=== PATIENT | female | born 1945 | race Caucasian/White ===

== ENCOUNTER → 2018-03-05 12:46 | Outpatient (CLI) | payer MEDICARE, SELFPAY ==
[2018-03-05 13:30] LABS: Add Manual Diff / Slide Review NO; Basophils Absolute Auto 0 /uL (0-100); Basophils Percent Auto 0.4 % (0-2); Eosinophils Absolute Auto 200 /uL (0-450); Eosinophils Percent Auto 2.7 % (2-4); Hematocrit 35.4 % (36-46); Hemoglobin 11.4 g/dL (12.0-16.0); Lymphocytes Absolute Auto 2600 /uL (1100-4500); Lymphocytes Percent Auto 34.6 % (25-40); Mean Corpuscular HGB Conc 32.1 % (30-36); Mean Corpuscular Hemoglobin 26.3 PG (26-34); Mean Corpuscular Volume 81.9 fL (80-100); Monocytes Absolute Auto 700 /uL (0-900); Monocytes Percent Auto 9.4 % (3-14); Neutrophils Absolute Auto 4000 /uL (1500-7000); Neutrophils Percent Auto 52.9 % (50-75); Platelet Count 251 X10^3/uL (150-400); Red Blood Cell Count 4.32 X10^6/uL (4.0-5.2); Red Cell Distribution Width 13.5 % (11.6-14.8); White Blood Cell Count 7.6 X10^3/uL (4.5-11.0)
== END ==
PROVIDERS: Family Provider Family Medicine; PCP Family Medicine; Visit Provider Specialist
DX: K62.5 Hemorrhage of anus and rectum (principal)
CPT/HCPCS: 36415; 85025

== ENCOUNTER → 2018-03-25 16:03 | Outpatient (CLI) | payer MEDICARE, SELFPAY ==
[2018-03-25 16:56] LABS: Hematocrit 38.8 % (36-46); Hemoglobin 12.4 g/dL (12.0-16.0)
[2018-03-25 17:09] LABS: Alanine Aminotransferase 27 IU/L (9-52); Albumin 4.8 g/dL (3.5-5.0); Albumin Globulin Ratio 1.4 (1.0-2.8); Alkaline Phosphatase 76 U/L (38-126); Aspartate Aminotransferase 27 IU/L (14-36); Bilirubin Total 0.6 mg/dL (0.2-1.3); Blood Urea Nitrogen 15 mg/dL (7-17); Calcium 9.9 mg/dL (8.4-10.2); Carbon Dioxide 25 mmol/L (22-32); Chloride 102 mmol/L (98-107); Cholesterol 234 mg/dL (140-199); Estimated Glomerular Filt Rate > 60.0 mL/min (>60); Globulin 3.5 g/dL (1.7-4.1); Glucose 98 mg/dL (80-110); HDL Cholesterol 38 mg/dL (40-60); Sodium 139 mmol/L (137-145); Total Protein 8.3 g/dL (6.3-8.2); Triglycerides 258 mg/dL (35-150)
[2018-03-25 17:10] LABS: HEMOLYSIS 33 (0-50); LDL Cholesterol Calculated 144 mg/dL (<100)
== END ==
PROVIDERS: Family Provider Family Medicine; PCP Family Medicine; Visit Provider Physician Assistant
DX: E78.2 Mixed hyperlipidemia (principal); D58.2 Other hemoglobinopathies
CPT/HCPCS: 36415; 80053; 80061; 85014; 85018

== ENCOUNTER → 2018-07-14 08:43 | Outpatient (CLI) | payer MEDICARE, SELFPAY ==
--- NOTE | 2018-07-14 | DI.MRI.S_ITS ---
PROCEDURE: MR ANGIO HEAD WO CON INDICATIONS: NEW ONSET MIRGRAINES/ MEMORY LOSS TECHNIQUE: Noncontrast axial 3-D [id number] MR angiogram, with 3-dimensional maximum intensity projection (MIP) reformats of the internal carotid arteries and posterior circulation then performed. COMPARISON: [facility], MR, BRAIN WITHOUT CONTRAST, 05/03/2009, 9:09. [facility], CT, HEAD WITHOUT CONTRAST, 04/13/2015, 12:20. [facility], MR, MR HEAD/BRAIN WO CON, 07/14/2018, 10:05. FINDINGS: Image quality: Excellent. Anterior circulation: Intracranial internal carotid arteries demonstrate normal size and intraluminal flow signal. The flow within the paired anterior cerebral arteries is normal and symmetric. The flow within the middle cerebral arteries is normal and symmetric. The anterior communicating artery is seen. No stenoses, occlusions, or aneurysms. Posterior circulation: Visualized portions of the vertebral arteries demonstrate normal caliber, and join to form a normal appearing basilar artery. The flow within the posterior cerebral arteries is normal and symmetric. The left posterior cerebral system is applied the P1 segment and the posterior communicating artery. No stenoses, occlusions, or aneurysms. IMPRESSION: No significant intracranial arterial abnormality is seen. Dictated by: Angel Grimes M.D. on 07/14/2018 at 10:12 Approved by: Angel Grimes M.D. on 07/14/2018 at 10:14
--- NOTE | 2018-07-14 | DI.MRI.S_ITS ---
PROCEDURE: MR HEAD/BRAIN WO CON INDICATIONS: NEW ONSET MIRGRAINES/ MEMORY LOSS TECHNIQUE: Non-contrast axial T1 spin echo, axial T2 fast spin echo, sagittal and axial FLAIR, coronal T2 fast spin echo, axial gradient echo, axial diffusion and ADC through the brain. COMPARISON: [facility], MR, BRAIN WITHOUT CONTRAST, 05/03/2009, 9:09. [facility], MR, MR ANGIO HEAD WO CON, 07/14/2018, 9:50. [facility], CT, HEAD WITHOUT CONTRAST, 04/13/2015, 12:20. FINDINGS: Image quality: Excellent. CSF spaces: Ventricles appear symmetric in size and shape. Basal cisterns are patent. No extra-axial fluid collections. Brain: No intracranial bleeds or mass effects. There is cerebral volume loss for age. There are periventricular and deep white matter chronic small vessel ischemic changes. Brainstem appears normal. Diffusion-weighted images show no acute ischemic insults. No chronic ischemic insults. Normal intravascular flow voids are present. Skull and face: Calvarial bone marrow is normal in signal. Orbits are normal. A right lens replacement can be seen. Sinuses: No significant active paranasal sinus disease is seen. Mild left mastoid air cell fluid can be seen, which is similar to 2010. IMPRESSION: No imaging explanation is found for this patient's presenting symptoms. Note is made of age-appropriate brain parenchymal volume loss and chronic small vessel ischemic changes. The degree of chronic small vessel ischemic change has progressed compared to 2009. Mild left mastoid air cell fluid. Dictated by: Angel Grimes M.D. on 07/14/2018 at 10:14 Approved by: Angel Grimes M.D. on 07/14/2018 at 10:17
--- NOTE | 2018-07-14 | DI.US.S_ITS ---
PROCEDURE: US CAROTID DOPPLER BI INDICATIONS: NEW ONSET MIRGRAINES/ MEMORY LOSS TECHNIQUE: Color and pulse Doppler interrogation was performed of both carotid systems, with image documentation and velocity measurements. COMPARISON: None. FINDINGS: Stenosis calculations are based on SRU (Society of Radiologists in Ultrasound) criteria. Right side: Brachial blood pressure: 144 per 76 mm Hg. Common carotid artery peak systolic velocity: 69 cm/sec. Internal carotid artery peak systolic velocity: 126 cm/sec. Internal carotid artery end diastolic velocity: 46 cm/sec. External carotid artery peak systolic velocity: 66 cm/sec. ICA/CCA peak systolic ratio: 1.8. Jesus scale imaging description: Minimal intimal thickening. Percent internal carotid artery stenosis: 50-69% stenosis. Vertebral artery: Flow direction is antegrade. Left side: Brachial blood pressure: 134/72 mm Hg. Common carotid artery peak systolic velocity: 88 cm/sec. Internal carotid artery peak systolic velocity: 92 cm/sec. Internal carotid artery end diastolic velocity: 33 cm/sec. External carotid artery peak systolic velocity: 63 cm/sec. ICA/CCA peak systolic ratio: 1.0. Jesus scale imaging description: Minimal scattered plaque. Percent internal carotid artery stenosis: Less than 50% stenosis. Vertebral artery: Flow direction is antegrade. IMPRESSION: 1. Stable 50-69% right internal carotid artery stenosis. 2. Stable less than 50% left internal carotid artery stenosis. Dictated by: Marlon LUNDBERG Interpreted: Emily Magana MD on 07/14/2018 at 15:27 Approved by: Emily Magana M.D. on 07/14/2018 at 16:03
== END ==
PROVIDERS: PCP Internal Medicine; Visit Provider Internal Medicine
DX: I65.23 Occlusion and stenosis of bilateral carotid arteries (principal); G43.909 Migraine, unspecified, not intractable, without status migrainosus; R41.3 Other amnesia
CPT/HCPCS: 70544; 70551; 93880

== ENCOUNTER → 2019-07-06 11:01 | Outpatient (CLI) | payer MEDICARE, SELFPAY ==
[2019-07-06 12:13] LABS: Alanine Aminotransferase 21 IU/L (<35); Albumin 4.3 g/dL (3.5-5.0); Albumin Globulin Ratio 1.3 (1.0-2.8); Alkaline Phosphatase 74 U/L (38-126); Aspartate Aminotransferase 33 IU/L (14-36); Bilirubin Total 0.3 mg/dL (0.2-1.3); Blood Urea Nitrogen 13 mg/dL (7-17); Calcium 9.3 mg/dL (8.4-10.2); Carbon Dioxide 25 mmol/L (22-32); Chloride 105 mmol/L (98-107); Cholesterol 167 mg/dL (140-199); Estimated Glomerular Filt Rate > 60.0 mL/min (>60); Globulin 3.3 g/dL (1.7-4.1); Glucose 100 mg/dL (80-110); HDL Cholesterol 30 mg/dL (40-60); HEMOLYSIS 18 (0-50); LDL Cholesterol Calculated 71 mg/dL (<100); Potassium 4.4 mmol/L (3.4-5.1); Sodium 137 mmol/L (137-145); Total Protein 7.6 g/dL (6.3-8.2); Triglycerides 331 mg/dL (35-150)
[2019-07-06 12:45] LABS: Thyroid Stimulating Hormone 4.58 uIU/mL (0.47-4.68)
== END ==
PROVIDERS: PCP Internal Medicine; Referring Provider Internal Medicine; Visit Provider Internal Medicine
DX: F33.1 Major depressive disorder, recurrent, moderate (principal); E78.5 Hyperlipidemia, unspecified
CPT/HCPCS: 36415; 80053; 80061; 84443

== ENCOUNTER → 2019-07-14 08:56 | Outpatient (CLI) | payer MEDICARE, SELFPAY ==
[2019-07-14 11:08] LABS: Hemoglobin A1C% w Est Avg Glu 6.3 % (4.0-6.0)
== END ==
PROVIDERS: PCP Internal Medicine; Referring Provider Internal Medicine; Visit Provider Internal Medicine
DX: R73.9 Hyperglycemia, unspecified (principal)
CPT/HCPCS: 36415; 83036

== ENCOUNTER → 2019-07-15 07:27 | Outpatient (CLI) | payer MEDICARE, SELFPAY ==
--- NOTE | 2019-07-15 | DI.US.S_ITS ---
PROCEDURE: US CAROTID DOPPLER BI INDICATIONS: OCCLUSION AND STENOSIS OF BILATERAL CAROTID ARTERIES TECHNIQUE: Color and pulse Doppler interrogation was performed of both carotid systems, with image documentation and velocity measurements. COMPARISON: [facility], , CAROTID DOPPLER BI, 07/14/2018, 9:14. FINDINGS: Stenosis calculations are based on SRU (Society of Radiologists in Ultrasound) criteria. Right side: Brachial blood pressure: 144/80 mm Hg. Common carotid artery peak systolic velocity: 85 cm/sec. Internal carotid artery peak systolic velocity: 82 cm/sec. Internal carotid artery end diastolic velocity: 37 cm/sec. External carotid artery peak systolic velocity: 89 cm/sec. ICA/CCA peak systolic ratio: 1.0. Jesus scale imaging description: No focal stenosis. Normal waveforms. Percent internal carotid artery stenosis: Less than 50%. Vertebral artery: Flow direction is antegrade. Left side: Brachial blood pressure: 139/78 mm Hg. Common carotid artery peak systolic velocity: 79 cm/sec. Internal carotid artery peak systolic velocity: 87 cm/sec. Internal carotid artery end diastolic velocity: 37 cm/sec. External carotid artery peak systolic velocity: 75 cm/sec. ICA/CCA peak systolic ratio: 1.1. Jesus scale imaging description: Mild intimal medial thickening of the carotid bulb and internal carotid artery. No focal stenosis. The waveforms are normal. Percent internal carotid artery stenosis: Less than 50%. Vertebral artery: Flow direction is antegrade. IMPRESSION: 1. No hemodynamically significant stenosis in either carotid or vertebral artery. 2. Antegrade vertebral artery flow bilaterally. Dictated by: Karina Naranjo M.D. on 07/15/2019 at 9:34 Approved by: Karina Naranjo M.D. on 07/15/2019 at 10:00
== END ==
PROVIDERS: PCP Internal Medicine; Referring Provider Internal Medicine; Visit Provider Internal Medicine
DX: I65.23 Occlusion and stenosis of bilateral carotid arteries (principal)
CPT/HCPCS: 93880

== ENCOUNTER → 2019-08-09 08:07 | Outpatient (CLI) | payer MEDICARE, SELFPAY ==
--- NOTE | 2019-08-09 | DI.MG.S_ITS ---
BILATERAL DIGITAL SCREENING MAMMOGRAM 3D/2D WITH CAD: 08/09/2019 CLINICAL: Routine screening. Comparison is made to exams dated: 03/27/2016 mammogram, 03/23/2015 mammogram, 02/23/2013 mammogram, and 02/06/2012 mammogram - [facility]. The tissue of both breasts is predominantly fatty. Current study was also evaluated with a Computer Aided Detection (CAD) system. There are benign calcifications in both breasts. No significant masses, calcifications, or other findings are seen in either breast. There has been no significant interval change. IMPRESSION: There is no mammographic evidence of malignancy. A 1 year screening mammogram is recommended. This exam was interpreted at Station ID: [id number]. NOTE: For mammograms, a report in lay terms will be sent to the patient. Approximately 15% of breast malignancies will not be visualized mammographically. In the management of a palpable breast mass, a negative mammogram must not discourage biopsy of a clinically suspicious lesion. Electronically Signed By: Herson wills/john:08/09/2019 08:51:32 letter sent: Normal Exam ACR BI-RADS Category 2: Benign Finding(s) [id number]
== END ==
PROVIDERS: PCP Internal Medicine; Referring Provider Internal Medicine; Visit Provider Internal Medicine
DX: Z12.31 Encounter for screening mammogram for malignant neoplasm of breast (principal)
CPT/HCPCS: 77063; 77067

== ENCOUNTER → 2019-12-21 14:43 | Outpatient (ROUT) | payer MEDICARE, SELFPAY ==
[2019-12-21 16:06] LABS: Hemoglobin A1C% w Est Avg Glu 6.4 % (4.0-6.0)
[2019-12-21 16:09] LABS: Alanine Aminotransferase 16 IU/L (<35); Albumin 4.4 g/dL (3.5-5.0); Albumin Globulin Ratio 1.4 (1.0-2.8); Alkaline Phosphatase 93 U/L (38-126); Aspartate Aminotransferase 30 IU/L (14-36); BUN Creatinine Ratio 20.7 (6-22); Bilirubin Total 0.7 mg/dL (0.2-1.3); Blood Urea Nitrogen 12 mg/dL (7-17); Calcium 9.7 mg/dL (8.4-10.2); Carbon Dioxide 28 mmol/L (22-32); Chloride 103 mmol/L (98-107); Cholesterol 175 mg/dL (140-199); Estimated Glomerular Filt Rate > 60.0 mL/min (>60); Globulin 3.2 g/dL (1.7-4.1); Glucose 97 mg/dL (80-110); HDL Cholesterol 33 mg/dL (40-60); HEMOLYSIS < 15 (0-50); LDL Cholesterol Calculated 74 mg/dL (<100); Potassium 4.4 mmol/L (3.4-5.1); Sodium 137 mmol/L (137-145); Total Protein 7.6 g/dL (6.3-8.2); Triglycerides 338 mg/dL (35-150)
[2019-12-21 16:18] LABS: High Sensitivity CRP - Cardiac 1.3 mg/L (1.0-3.0)
[2019-12-21 16:46] LABS: TSH w/ Reflex to FT4 2.25 uIU/mL (0.47-4.68)
== END ==
PROVIDERS: PCP Internal Medicine; Visit Provider Internal Medicine
DX: F41.9 Anxiety disorder, unspecified (principal); E78.5 Hyperlipidemia, unspecified; R73.9 Hyperglycemia, unspecified
CPT/HCPCS: 80053; 80061; 83036; 84443; 86140

== ENCOUNTER → 2021-01-10 14:05 | Outpatient (CLI) | payer MEDICARE, SELFPAY ==
[2021-01-10 15:13] LABS: COVID19 -Nasal RAPID Negative (Negative)
== END ==
PROVIDERS: PCP Internal Medicine; Visit Provider Nurse Practitioner Family
DX: Z20.822 Contact with and (suspected) exposure to COVID-19 (principal); R05.9 Cough, unspecified; R09.89 Other specified symptoms and signs involving the circulatory and respiratory systems; R53.83 Other fatigue
CPT/HCPCS: 87635

== ENCOUNTER → 2021-01-10 14:28 | Outpatient (CLI) | payer MEDICARE, SELFPAY ==
--- NOTE | 2021-01-10 14:32 | DI.RAD.S_ITS ---
PROCEDURE: XR CHEST 2V INDICATIONS: cough TECHNIQUE: 2 views of the chest were acquired. COMPARISON: [facility], , CHEST 2 VIEW, 07/18/2014, 18:39. FINDINGS: Surgical changes and devices: None. Lungs and pleura: Lungs are clear. No pleural effusions or pneumothorax. Mediastinum: Mediastinal contours are normal. Heart size is normal. Bones and chest wall: No suspicious bony abnormalities. Soft tissues appear unremarkable. IMPRESSION: No acute cardiopulmonary findings Approved by: Brandon Garcia M.D. on 01/10/2021 at 14:21
== END ==
PROVIDERS: Referring Provider Nurse Practitioner Family; Visit Provider Nurse Practitioner Family
DX: R05.9 Cough, unspecified (principal); Z20.822 Contact with and (suspected) exposure to COVID-19; R53.83 Other fatigue; R09.89 Other specified symptoms and signs involving the circulatory and respiratory systems
CPT/HCPCS: 71046; 87635

== ENCOUNTER → 2021-02-25 16:47 | Outpatient (CLI) | payer MEDICARE, SELFPAY ==
[2021-02-25 17:31] LABS: COVID19 -Nasal RAPID Negative (Negative)
== END ==
PROVIDERS: Referring Provider Nurse Practitioner Critical Care Medicine; Visit Provider Nurse Practitioner Critical Care Medicine
DX: Z20.822 Contact with and (suspected) exposure to COVID-19 (principal)
CPT/HCPCS: 87635

== ENCOUNTER → 2021-04-18 10:56 | Outpatient (CLI) | payer MEDICARE, SELFPAY ==
[2021-04-18 13:55] LABS: COVID19 -Nasal RAPID Negative (Negative)
== END ==
PROVIDERS: Visit Provider Family Medicine Sleep Medicine
DX: Z20.822 Contact with and (suspected) exposure to COVID-19 (principal)
CPT/HCPCS: 87635

== ENCOUNTER → 2021-04-18 12:00 | Outpatient (CLI) | payer MEDICARE, SELFPAY | PROVIDERS: PCP Internal Medicine; Referring Provider Internal Medicine; Visit Provider Internal Medicine | DX: M85.852 Other specified disorders of bone density and structure, left thigh (principal); Z13.820 Encounter for screening for osteoporosis; Z78.0 Asymptomatic menopausal state; Z90.722 Acquired absence of ovaries, bilateral; Z87.891 Personal history of nicotine dependence; Z20.822 Contact with and (suspected) exposure to COVID-19 | CPT/HCPCS: 77080; 87635; C9803 ==

== ENCOUNTER → 2021-04-20 09:01 | Outpatient (CLI) | payer MEDICARE, SELFPAY ==
--- NOTE | 2021-04-20 | DI.NM.S_ITS ---
PROCEDURE: NM ISAI PERF SPECT REST & STR Rest and exercise myocardial perfusion SPECT with gated imaging and ejection fraction RADIOPHARMACEUTICAL: 14.4 mCi Tc-99m sestamibi IV at rest and 24.8 mCi Tc-99m sestamibi IV at peak exercise. A one day-protocol was performed. INDICATIONS: Chest pain, unspecified TECHNIQUE: Radiopharmaceutical was injected at peak stress test, and also at rest. SPECT images were obtained. SPECT myocardial perfusion images were displayed in short axis, horizontal long axis, and vertical long axis views. Gated images were reviewed using [employer] software. COMPARISON: None. CARDIAC STRESS: A standard Galen treadmill exercise tolerance test was performed by the patient under the supervision of an attending staff. The patient exercised for 7 minutes and 52 seconds; functional aerobic impairment (RAMSEY) is -30%. Hemodynamic data: There is normal blood pressure and heart rate response to exercise stress. Patient achieved 108% of maximum predicted heart rate at peak exercise. Symptoms: Patient developed 5/10 chest discomfort in stage 2 of exercise that worsened to 7/10 at maximum exercise and resolved within 3 minutes of recovery EKG: Sinus rhythm with no ST-T changes at rest. 1mm horizontal-downsloping ST depressions in the inferior leads and 2mm downsloping ST depressions in the anterolateral leads with exercise; occasional PVCs. FINDINGS: Raw data: There is good myocardial labeling by radiotracer. No significant motion artifacts. Jubk-hh-cnelp ratio is 0.28 (normal is less than 0.38 for sestamibi tracer, and less than 0.50 for thallium tracer). Left ventricle function: Gated images demonstrate normal left ventricle wall thickening. No segmental wall motion abnormality. No transient ischemic dilation; TID is 0.78 (normal less than 1.3). The left ventricle resting end-diastolic volume is 96 mL. Left ventricle stress ejection fraction is 79%; normal values are above 45%. Myocardial perfusion: There is small mildly intense anteroapical and apical perfusion defect that improves significantly with prone imaging suggesting probable breast attenuation artifact. No ischemia. SSS 0. IMPRESSION: Abnormal treadmill nuclear stress due to angina and ST changes. No perfusion evidence of ischemia or infarction. 1) There is small mildly intense anteroapical and apical perfusion defect that improves significantly with prone imaging suggesting probable breast attenuation artifact. No ischemia. SSS 0. 2) Normal left ventricular size, wall motion, and systolic function (EF 79% post stress). 3) Angina noted with exercise. Patient developed 5/10 chest discomfort in stage 2 of exercise that worsened to 7/10 at maximum exercise and resolved within 3 minutes of recovery. 4) Diagnostic ST changes with exercise. 1mm horizontal-downsloping ST depressions in the inferior leads and 2mm downsloping ST depressions in the anterolateral leads with exercise. 5) Good exercise tolerance (10.1 METS, RAMSEY -30%). Target HR achieved. Appropriate BP response to exercise. Recommend cardiology consultation for further evaluation. Dictated by: Andrew Levine MD on 04/23/2021 at 13:28 Approved by: Andrew Levine MD on 04/23/2021 at 13:36
== END ==
PROVIDERS: PCP Internal Medicine; Referring Provider Internal Medicine; Visit Provider Internal Medicine
DX: I20.9 Angina pectoris, unspecified (principal); R94.39 Abnormal result of other cardiovascular function study
CPT/HCPCS: 78452; 93017; A9502

== ENCOUNTER → 2021-08-09 11:37 | Outpatient (CLI) | payer MEDICARE, SELFPAY ==
[2021-08-09 13:03] LABS: Cholesterol 132 mg/dL (140-199); HDL Cholesterol 34 mg/dL (40-60); LDL Cholesterol Calculated 58 mg/dL (<100); Triglycerides 202 mg/dL (35-150)
== END ==
PROVIDERS: PCP Internal Medicine; Referring Provider Internal Medicine Cardiovascular Disease; Visit Provider Internal Medicine Cardiovascular Disease
DX: E78.5 Hyperlipidemia, unspecified (principal)
CPT/HCPCS: 36415; 80061

== ENCOUNTER → 2022-01-03 10:09 | Outpatient (CLI) | payer MEDICARE, SELFPAY ==
--- NOTE | 2022-01-03 10:12 | DI.RAD.S_ITS ---
PROCEDURE: XR HIP W PEL IF DONE BILAT 2V INDICATIONS: BILATERAL HIP PAIN TECHNIQUE: AP pelvis with lateral view(s) of the bilateral hip(s). COMPARISON: None. FINDINGS: Bones: No fractures or dislocations. Ulde-bx-[id number] bilateral hip joint osteoarthritic changes are seen with joint space narrowing, subchondral sclerosis and small marginal osteophyte formation. No evidence of avascular necrosis of femoral head. Pelvic ring appears intact. No suspicious bony lesions. Soft tissues: The visualized bowel gas pattern is normal. No suspicious soft tissue calcifications. IMPRESSION: Jghy-uj-gnaryxiq bilateral hip joint osteoarthritis. No fracture or dislocation. No evidence of avascular necrosis. Dictated by: Miles Mcdonald M.D. on 01/03/2022 at 11:55 Approved by: Miles Mcdonald M.D. on 01/03/2022 at 11:56
== END ==
PROVIDERS: PCP Internal Medicine; Referring Provider Internal Medicine; Visit Provider Internal Medicine
DX: M25.551 Pain in right hip (principal); M25.552 Pain in left hip; M16.0 Bilateral primary osteoarthritis of hip
CPT/HCPCS: 73521

== ENCOUNTER → 2022-01-08 06:58 | Outpatient (CLI) | payer MEDICARE, OTHER, SELFPAY ==
--- NOTE | 2022-01-08 | DI.MRI.S_ITS ---
PROCEDURE: MR CERVICAL SPINE WO CON INDICATIONS: LUMBAR,THORACIC AND CERVICAL PAIN TECHNIQUE: Noncontrast sagittal T1 spin echo and T2 fast spin echo, sagittal STIR, foraminal oblique sagittal T2 fast spin echo, and axial gradient echo or T2 fast spin echo through the cervical spine. COMPARISON: None. FINDINGS: Image quality: Excellent. Alignment and Curvature: Trace anterolisthesis of C3 on C4. Trace retrolisthesis of C4 on C5, C5 on C6, and C6 on C7. Trace anterolisthesis of C7 on T1. Bone Marrow: Marrow demonstrates normal overall signal. Spinal Cord: Visualized spinal cord has normal size and signal. No cerebellar tonsillar herniation. Paraspinous Soft Tissues: No paravertebral masses. Prevertebral soft tissues are normal in thickness. C2-C3: Disc bulge. AP diameter of the canal is 9.9 mm. Prominent right facet hypertrophy. Moderate to severe right foraminal narrowing with impingement on the exiting right C3 nerve root. C3-C4: AP diameter of the canal is 11.3 mm. Prominent left facet hypertrophy. Severe left foraminal narrowing with left foraminal C4 nerve root impingement. C4-C5: Diffuse posterior disc post osteophyte. AP diameter of the canal is 9.2 mm. Prominent bilateral uncovertebral joint osteophytes. Bilateral facet hypertrophy. Severe bilateral foraminal narrowing with bilateral foraminal C5 nerve root impingement. C5-C6: Diffuse posterior disc post osteophyte. AP diameter of the canal is 9.1 mm. Prominent bilateral uncovertebral joint osteophytes. Bilateral facet hypertrophy. Moderate to severe bilateral foraminal narrowing with bilateral foraminal C6 nerve root impingement. C6-C7: Posterior disc post osteophyte. AP diameter of the canal is 8.8 mm. Bilateral uncovertebral joint hypertrophy. Moderate right foraminal narrowing. Severe left foraminal narrowing with left foraminal C7 nerve root impingement. C7-T1: No canal stenosis. Moderate left foraminal narrowing with left foraminal flattening on the exiting C8 nerve root sleeve. IMPRESSION: 1. Severe cervical spondylitic change with multilevel disc bulges, multilevel canal stenosis, multilevel uncovertebral joint hypertrophy, and multilevel facet arthropathy. 2. Canal stenosis is borderline at C2-C3 and mild to moderate at C4-C5, C5-C6, and C6-C7. 3. Multilevel severe or moderate to severe bilateral foraminal narrowing with multilevel bilateral foraminal nerve root impingement as described above. Dictated by: Janes Rousseau M.D. on 01/08/2022 at 10:45 Approved by: Janes Rousseau M.D. on 01/08/2022 at 10:54
--- NOTE | 2022-01-08 | DI.MRI.S_ITS ---
PROCEDURE: MR LUMBAR SPINE WO CON INDICATIONS: LUMBAR,THORACIC AND CERVICAL PAIN TECHNIQUE: Noncontrast sagittal T1 spin echo and T2 fast echo, sagittal STIR, and T2 fast spin echo through the lumbar spine. In cases with scoliosis, additional coronal T2 fast spin echo may be performed. COMPARISON: None. FINDINGS: Image quality: Excellent. Alignment and Curvature: Trace degenerative retrolisthesis of L5 on S1. Bone Marrow: Marrow is of normal overall signal. No acute vertebral body compression fractures. Spinal Cord: Conus medullaris terminates at the L1-L2 level. Visualized cord demonstrates normal signal and size. Paraspinous Soft Tissues: No paravertebral masses. T12-L1: No canal stenosis or foraminal stenosis. L1-L2: Disc bulge. No canal stenosis or foraminal stenosis. L2-L3: Disc bulge. No canal stenosis or foraminal stenosis. L3-L4: Disc bulge. Facet hypertrophy. Borderline canal stenosis. Mild bilateral foraminal stenosis. L4-L5: Disc bulge. Facet hypertrophy. Mild canal stenosis. Mild bilateral foraminal stenosis. L5-S1: Severe disc height loss. Disc bulge. Facet hypertrophy. No canal stenosis. Moderate right foraminal narrowing with flattening deformity on the exiting right L5 nerve root. Severe left foraminal narrowing with left foraminal L5 nerve root impingement. IMPRESSION: 1. Multilevel facet arthropathy. 2. There is borderline canal stenosis at L3-L4 and mild canal stenosis at L4-L5. 3. At L5-S1 there is severe left foraminal narrowing with left foraminal L5 nerve root impingement. Question: Does this patient have symptoms of left L5 radiculitis? Dictated by: Janes Rousseau M.D. on 01/08/2022 at 10:41 Approved by: Janes Rousseau M.D. on 01/08/2022 at 10:45
--- NOTE | 2022-01-08 | DI.MRI.S_ITS ---
PROCEDURE: MR THORACIC SPINE WO CON INDICATIONS: LUMBAR,THORACIC AND CERVICAL PAIN TECHNIQUE: Noncontrast sagittal T1 spine echo and T2 fast spin echo, sagittal STIR, and T2 fast spin echo through the thoracic spine. COMPARISON: [facility], CR, XR DEXA AXIAL SKELETON, 04/18/2021, 13:01. FINDINGS: Image quality: Excellent. Alignment and Curvature: Mild anterolisthesis of T1 on T2 measures 3 mm. Trace anterolisthesis of T2 on T3. Bone Marrow: Marrow is of normal overall signal. No acute vertebral body compression fractures. Mild anterior wedging of T5, T6, T7, and T8 results in mild increased thoracic kyphosis. Spinal Cord: Visualized spinal cord is normal in size and signal. Paraspinous Soft Tissues: No paravertebral masses. Miscellaneous: On axial images, central canal and foramina appear widely patent at all scanned levels. Disc bulges are present at T2-T3, T3-T4, T4-T5, T5-T6, T6-T7, T7-T8, T8-T9, and T9-T10. IMPRESSION: 1. Anterior wedging of multiple contiguous thoracic vertebral bodies suggest osteoporosis, despite recent DEXA results consistent with osteopenia. 2. Multilevel thoracic disc bulges without canal stenosis or foraminal stenosis. Dictated by: Janes Rousseau M.D. on 01/08/2022 at 9:12 Approved by: Janes Rousseau M.D. on 01/08/2022 at 9:19
== END ==
PROVIDERS: PCP Internal Medicine; Referring Provider Internal Medicine; Visit Provider Internal Medicine
DX: M50.31 Other cervical disc degeneration, high cervical region (principal); M48.02 Spinal stenosis, cervical region; M47.812 Spondylosis without myelopathy or radiculopathy, cervical region; M51.34 Other intervertebral disc degeneration, thoracic region; M51.36 Other intervertebral disc degeneration, lumbar region; M47.816 Spondylosis without myelopathy or radiculopathy, lumbar region; M48.061 Spinal stenosis, lumbar region without neurogenic claudication; M48.07 Spinal stenosis, lumbosacral region; M47.817 Spondylosis without myelopathy or radiculopathy, lumbosacral region; M85.88 Other specified disorders of bone density and structure, other site; M54.50 Low back pain, unspecified; G89.29 Other chronic pain
CPT/HCPCS: 72141; 72146; 72148

== ENCOUNTER → 2022-11-14 11:03 | Outpatient (CLI) | payer MEDICARE, SELFPAY ==
--- NOTE | 2022-11-14 | DI.MG.S_ITS ---
BILATERAL DIGITAL SCREENING MAMMOGRAM 3D/2D WITH CAD: 11/14/2022 CLINICAL: Routine screening. Comparison is made to exams dated: 08/09/2019 mammogram, 03/27/2016 mammogram, 03/23/2015 mammogram, and 01/29/2011 mammogram - [facility]. Both breasts are almost entirely fatty (category a/<25% glandular tissue). Current study was also evaluated with a Computer Aided Detection (CAD) system. There are benign calcifications in both breasts. No significant masses, calcifications, or other findings are seen in either breast. There has been no significant interval change. IMPRESSION: BENIGN There is no mammographic evidence of malignancy. A 1 year screening mammogram is recommended. Based on the Tyrer Cuzick model (a risk assessment model) the patient's lifetime risk is 1.5% and her 10 year risk is 0.0%. According to the ACR, ACS, and NCCN guidelines, an annual breast MRI exam along with mammogram is recommended if the patient's lifetime risk is 20% or greater. This exam was interpreted at Station ID: [id number]. NOTE: For mammograms, a report in lay terms will be sent to the patient. Approximately 15% of breast malignancies will not be visualized mammographically. In the management of a palpable breast mass, a negative mammogram must not discourage biopsy of a clinically suspicious lesion. Electronically Signed By: Herson wills/john:11/14/2022 12:14:40 letter sent: Normal Exam ACR BI-RADS Category 2: Benign Finding(s) 3342F
== END ==
PROVIDERS: PCP Internal Medicine; Referring Provider Internal Medicine; Visit Provider Internal Medicine
DX: Z12.31 Encounter for screening mammogram for malignant neoplasm of breast (principal)
CPT/HCPCS: 77063; 77067

== ENCOUNTER → 2023-01-21 14:19 | Outpatient (CLI) | payer MEDICARE, SELFPAY ==
--- NOTE | 2023-01-21 | DI.RAD.S_ITS ---
Bone Density Report Name: JAIME GAN Age: 77 Sex: Female Ethnicity: White Date of : 1945 Indication: postmenopausal; screening for osteoporosis; Referring Provider: IMAN HERNANDEZ Study: Bone densitometry was performed. Exam Date: January 21, 2023 Accession number: [id number] Bone Density: Region BMD T-score Z-score Classification AP Spine(L1-L4) 1.020 -0.2 2.3 Normal Femoral Neck (Left) 0.666 -1.7 0.6 Osteopenia Total Hip (Left) 0.905 -0.3 1.6 Normal Femoral Neck (Right) 0.744 -0.9 1.3 Normal Total Hip (Right) 0.901 -0.3 1.6 Normal Total Hip Mean 0.903 -0.3 1.6 Normal World Health Organization criteria for BMD impression classify patients as: Normal (T-score at or above -1.0), Osteopenia (T-score between -1.0 and -2.5), or Osteoporosis (T-score at or below -2.5). 10-year Fracture Risk(1): Major Osteoporotic Fracture 13% Hip Fracture 2.9% Reported Risk Factors: [place] (), Neck BMD=0.666, BMI=30.4 (1) FRAX(R) Version 3.08. Fracture probability calculated for an untreated patient. Fracture probability may be lower if the patient has received treatment. Previous Exams: -- Region Exam Age BMD T-score BMD Change BMD Change Date g/cm2 vs Baseline vs Previous -- AP Spine (L1-L4) 01/21/2023 77 1.020 -0.2 -0.122 (-10.7%)# -0.070 (-6.4%)# 04/18/2021 76 1.090 0.4 -0.052 (-4.5%)* 0.011 (1.0%) 11/04/2016 71 1.079 0.3 -0.062 (-5.5%)* -0.062 (-5.5%)* 08/03/2009 64 1.141 0.9 Total Hip(Left) 01/21/2023 77 0.905 -0.3 -0.058 (-6.1%)# -0.016 (-1.7%)# 04/18/2021 76 0.921 -0.2 -0.042 (-4.4%)* -0.024 (-2.6%) 11/04/2016 71 0.946 0.0 -0.018 (-1.9%) -0.018 (-1.9%) 08/03/2009 64 0.964 0.2 Total Hip(Right) 01/21/2023 77 0.901 -0.3 -0.083 (-8.5%)# -0.021 (-2.3%)# 04/18/2021 76 0.923 -0.2 -0.062 (-6.3%)* -0.043 (-4.4%)* 11/04/2016 71 0.965 0.2 -0.019 (-2.0%) -0.019 (-2.0%) 08/03/2009 64 0.984 0.3 -- *Denotes significance at 95% confidence level, LSC for AP Spine = 0.022 g/cm2, LSC for Total Hip = 0.027 g/cm2 # Denotes dissimilar scan types or analysis methods Impression: The patient has low bone mass, based on the Left Femoral Neck T-score. The patient has an estimated ten-year risk of hip fracture of 2.9% and an estimated ten-year risk of major fracture of 13%, based on the WHO FRAX algorithm. No significant bone loss was observed. Discussion: BONE DENSITY IS LOW AT ONE OR MORE SKELETAL SITES. This patient's lowest T-score is low at one or more skeletal sites. It meets the World Health Organization's (WHO) criteria for low bone mass (T-score between -1.0 and -2.5). The patient's 10-year risk of fracture as calculated by FRAX is less than the threshold where pharmacological therapy is recommended by the National Osteoporosis Foundation (NOF). However, all treatment decisions require clinical judgment and consideration of individual patient factors, including patient preferences, comorbidities, previous drug use, risk factors not captured in the FRAX model (e.g., frailty, falls, vitamin D deficiency, increased bone turnover, interval significant decline in bone density) and possible under or overestimation of fracture risk by FRAX. The patient should follow a healthful lifestyle (good nutrition with adequate calcium and vitamin D, and appropriate weight-bearing exercise). Follow-Up: Consider repeating this study in 2 to 3 years to reassess this patient's status, or sooner if there is some new clinical indication. Reported by: [facility] OLGA WERNER M.D. on 01/21/2023 3:09:00 PM.
== END ==
PROVIDERS: PCP Internal Medicine; Referring Provider Internal Medicine; Visit Provider Internal Medicine
DX: Z13.820 Encounter for screening for osteoporosis; M85.852 Other specified disorders of bone density and structure, left thigh; Z78.0 Asymptomatic menopausal state
CPT/HCPCS: 77080

== ENCOUNTER → 2023-09-22 11:56 | Outpatient (CLI) | payer MEDICARE, SELFPAY ==
--- NOTE | 2023-09-22 11:59 | DI.RAD.S_ITS ---
PROCEDURE: XR CERVICAL SPINE 2V OR 3V INDICATIONS: Cervicalgia TECHNIQUE: 3 view(s) of the cervical spine were acquired. COMPARISON: None. FINDINGS: Bones: No fractures or dislocations to the T1 level. Degenerative endplate changes are noted throughout cervical spine. The lateral masses of C1 appear intact on the odontoid view. No suspicious bony lesions. Soft tissues: No prevertebral soft tissue swelling. IMPRESSION: No acute cervical spine fracture or dislocation. Degenerative disc disease throughout cervical spine. No gross paraspinous soft tissue abnormalities. Dictated by: Miles Mcdonald M.D. on 09/22/2023 at 17:44 Approved by: Miles Mcdonald M.D. on 09/22/2023 at 17:44
== END ==
PROVIDERS: PCP Student in an Organized Health Care Education/Training Program; Referring Provider Student in an Organized Health Care Education/Training Program; Visit Provider Student in an Organized Health Care Education/Training Program
DX: M50.30 Other cervical disc degeneration, unspecified cervical region (principal)
CPT/HCPCS: 72040

== ENCOUNTER → 2024-06-09 19:53 | Outpatient (CLI) | payer MEDICARE, SELFPAY ==
--- NOTE | 2024-06-09 | DI.MRI.S_ITS ---
PROCEDURE: MR KNEE LT WO CON INDICATIONS: knee pain - left TECHNIQUE: Noncontrast sagittal PD fast spin echo and T2 fast spin echo with fat saturation, sagittal 3-D FLASH with fat saturation; coronal T1 spin echo and PD fast spin echo with fat saturation, and axial PD fast spin echo with fat saturation through the knee. COMPARISON: None. FINDINGS: Image quality: Excellent. Menisci: There is peripheral displacement of medial meniscus bowing medial collateral ligament. Horizontal oblique tear involving body and posterior horn of medial meniscus is seen extending to inferior articulating surface. There is no lateral meniscal tear. Cruciate ligaments: The anterior and posterior cruciate ligaments appear intact. Medial structures: The medial collateral ligament appears thickened with intrasubstance T2 hyperintense signal and surrounding soft tissue edema. Visualized portions of the pes anserinus tendons appear normal. No abnormal bursal fluid. Lateral structures: The lateral collateral ligament, long and short heads of the biceps femoris tendon appear intact. Low-grade partial-thickness tear involving popliteus tendon extending to musculotendinous junction is seen. Iliotibial band appears normal. Anterior structures: Mild distal quadriceps tendinosis. The patellar tendon is intact. Bones and cartilage: Mild marrow edema involving weight-bearing portion of medial femoral condyle is seen without discrete fracture line. Marrow edema is also noted involving anterior medial periphery of proximal tibia and medial tibial plateau with subcortical linear hypointense signal concerning for subcortical fracture in this area. 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 Joint space: There is small to moderate knee joint fluid. No Garcia's cyst. Normal appearing synovial plicae are incidentally noted. IMPRESSION: 1. 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 Suggestion of subcortical fracture involving antral medial weight-bearing portion of medial tibial plateau. Contusion involving weight-bearing portion of adjacent medial femoral condyle. No other fracture or dislocation. 2. Horizontal oblique tear involving body and posterior horn of medial meniscus extending to inferior articulating surface. No evidence of lateral meniscal tear. 3. The cruciate ligaments are intact. 4. Moderate grade MCL sprain/partial-thickness tear. Low-grade partial-thickness tear involving popliteus tendon extending to musculotendinous junction. 5. Small to moderate joint effusion, no loose bodies. Dictated by: Miles Mcdonald M.D. on 06/12/2024 at 19:31 Approved by: Miles Mcdonald M.D. on 06/12/2024 at 19:35
== END ==
PROVIDERS: PCP Student in an Organized Health Care Education/Training Program; Referring Provider Internal Medicine; Visit Provider Internal Medicine
DX: S83.242A Other tear of medial meniscus, current injury, left knee, initial encounter (principal); S80.02XA Contusion of left knee, initial encounter; S83.412A Sprain of medial collateral ligament of left knee, initial encounter; M17.12 Unilateral primary osteoarthritis, left knee; M25.462 Effusion, left knee; M25.562 Pain in left knee; G89.29 Other chronic pain
CPT/HCPCS: 73721